=== PATIENT | male | born 1950 | race Caucasian/White ===

== ENCOUNTER → 2018-06-22 | Outpatient (CLI) | payer OTHER ==
--- NOTE | 2018-06-23 08:31 | Diagnostic Imaging Report ---
TECHNIQUE: Magnetic resonance imaging of the LEFT foot (forefoot) was performed WITHOUT injected contrast. HISTORY: Diabetes, infected, bone infection, nonhealing ulcer COMPARISON: None available. DISCUSSION: Bone: No focal or infiltrative bone marrow replacing abnormality. No acute fracture or osteonecrosis. Bipartite tibial hallux sesamoid with mild nonspecific bone marrow edema both moieties, relative preservation of the fatty marrow signal. Joints: Mild to moderate hallux valgus deformity. Moderate degenerative changes of the first metatarsophalangeal joint. Soft Tissues: A superficial soft tissue defect at the plantar aspect of the foot overlying the first metatarsophalangeal joint. A 1.3 cm (AP) x 1.4 cm (ML) x 0.7 cm (CC) ossification within the dorsal aspect of the first metatarsophalangeal joint, an intra-articular ossified body. No drainable fluid collection. Moderate diffuse soft tissue edema. IMPRESSION: 1. Plantar soft tissue defect without associated soft tissue abscess. 2. Bipartite tibial hallux sesamoid with associated reactive bone marrow edema. Low probability of superimposed osteomyelitis. No evidence of osteomyelitis involving the remaining bones. Signed by: Dr. Chuck Ruff D.O., M.M.M. on 06/23/2018 8:28 AM
== END ==
LOC: MRI 15:57
PROVIDERS: ATTEND Podiatrist
DX: M86.8X7 Other osteomyelitis, ankle and foot (principal)